=== PATIENT | male | born 1945 | race Caucasian/White ===

== ENCOUNTER 2017-01-13 08:30 | Day surgery (SDC) | payer MEDICARE, OTHER ==
[~2017-01-13] VITALS: Ht 172.7 cm; Wt 86.2 kg
[~2017-01-13 08:30] MED LIST: 0.9% Sodium Chloride 1,000 ML IV SCH; ACET-2766 PO; CELE200C PO; GLUC100016 PO; OMEP20TA86 PO; PREG75CA PO; Sodium Chloride LOK Flush 10 mL Syringe IV PRN; fentaNYL-PF 50 mCg/mL 2 mL Inj IVPUSH PRN
[2017-01-13 09:01] VITALS: BP 113/66; PULSE 72; O2SAT 96
[2017-01-13] MEDS ORDERED: RANI75TA21 PO (09:03)
[2017-01-13 10:30] VITALS: BP 109/68; PULSE 74; RESP 16; O2SAT 99
[2017-01-13 10:40] VITALS: BP 123/69; PULSE 71; RESP 16; O2SAT 97
[2017-01-13 10:50] VITALS: BP 113/72; PULSE 75; RESP 16; O2SAT 98
[2017-01-13 11:00] VITALS: BP 133/92; RESP 16
--- NOTE | 2017-01-13 11:01 | ENDO ---
[address] [address] ENDOSCOPY PROCEDURE PATIENT: DAVID MICHAEL : 1945 MR#: [id number] ADMIT: 01/13/2017 JOB ID: [id number] DATE: 01/13/2017 PROCEDURE: Esophagogastroduodenoscopy with hot snare polypectomy and biopsy along with a colonoscopy and hot snare polypectomy. EQUIPMENT: GIF-H180J and PCF-H180AL. SEDATION: 1. Versed 6 mg. 2. Fentanyl 125 mcg. COMPLICATIONS: None identified. BOWEL PREPARATION: Fair, adequate exam. INDICATIONS: A 71-year-old male with chronic longstanding reflux, but acceptably controlled with PPI. He also reports a personal history of colon polyps and returns for surveillance. PROCEDURE INFO: After the risks and benefits were explained, written and verbal informed consent was obtained. The patient was brought into the endoscopy suite and placed into the left lateral decubitus position. Sedation was achieved using the above-stated medications with the addition of oxygen via nasal cannula. The scope was introduced into the rectum and advanced under direct visualization to the level of the second portion of the duodenum. The scope was slowly withdrawn to carefully examine the mucosa for any defects or lesions. Retroflexed views were accomplished in the stomach. The stomach was decompressed. The scope removed from the patient who tolerated the procedure well. The patient was then turned around. A digital rectal examination accomplished. Mild prostatic hypertrophy, smooth was noted otherwise. No significant pathology appreciated. The scope was introduced into the rectum and advanced to the cecum as identified by the appendiceal orifice and ileocecal valve. The scope was slowly withdrawn to carefully examine the mucosa for any defects or lesions. Retroflexed views were accomplished in the rectum. The colon was decompressed. The scope removed from the patient who tolerated the procedure well. FINDINGS: 1. Duodenum: No pathology from the bulb through to the second portion identified. 2. Stomach: No outlet obstruction. No ulcers. No mass lesions. Retroflexed views of the LES were rather unremarkable. There was an approximately 6 mm polyp in the proximal body of the stomach. I initially biopsied this and there was some mild oozing. We therefore elected to take it off entirely with hot snare polypectomy. 3. Esophagus: Subtle sliding hiatal hernia was noted. The GEJ was at 41 cm from the incisors. There was a tongue of possible Jimenez's in the 7 o'clock location. This would be measured as C0M0.5 if it is indeed Jimenez's. Biopsy was acquired. No other pathology appreciated in the esophagus and there was no evidence of any acute erosive changes. 4. Colon: In the transverse colon there was a small 6 mm sessile polyp removed with hot snare. No other significant pathology appreciated throughout including retroflexed views. ENDOSCOPIC DIAGNOSES: 1. Gastric polyp. 2. Small sliding hiatal hernia. 3. 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 4. Colon polyp. 5. Increased prostate size. RECOMMENDATIONS: 1. Await histopathology. 2. If nondysplastic Jimenez's is identified, then repeat EGD in 9-12 months. 3. Repeat colonoscopy five years. 4. Follow up in primary care for routine prostate health surveillance.
[2017-01-13 11:10] VITALS: BP 127/83; PULSE 70; RESP 16; O2SAT 98
--- NOTE | 2017-01-15 13:49 | PATH ---
SURGICAL PATHOLOGY Attending Physician:Baylee York CASE STATUS: Signed Out PATIENT NAME: DAVID MICHAEL PID: [id number] : 1945 DATE COLLECTED:01/13/2017 16:23 SPECIMEN: 1: Stomach, Polyp, Biopsy 2: Esophagus, Biopsy 3: Colon, Polyp CLINICAL HISTORY: 1. GASTRIC POLYP X1 2. DISTAL ESOPHAGUS 3. TRANSVERSE COLON POLYP X1 FINAL DIAGNOSIS: 1.STOMACH, POLYP, BIOPSY: FUNDIC GLAND POLYP. Negative for Helicobacter organisms. Negative for intestinal metaplasia. Negative for dysplasia and malignancy. 2.DISTAL ESOPHAGUS, BIOPSY: COLUMNAR MUCOSA WITH NO DIAGNOSTIC ABNORMALITY. Negative for intestinal metaplasia. Negative for dysplasia and malignancy. 3.TRANSVERSE COLON, POLYP, BIOPSY: COLONIC MUCOSA WITH NO DIAGNOSTIC ABNORMALITY CONSISTENT WITH POLYPOID REDUNDANCY. Negative for dysplasia and malignancy. Additional levels were examined. ICD10 R10.9 GROSS DESCRIPTION: Received are three formalin-filled containers, each labeled with the patient' s name. 1. Received in formalin, labeled with the patient' s name and "gastric polyp", are four fragments of linn, soft tissue ranging in size from 0.1 x 0.1 x 0.1 cm to 0.3 x 0.3 x 0.3 cm. The larger fragment is bisected, and all fragments are totally submitted in cassette 1A. 2. Received in formalin, labeled with the patient' s name and "DE", is one fragment of linn, soft tissue measuring 0.1 x 0.1 x 0.1 cm. The fragment is totally submitted in cassette 2A. 3. Received in formalin, labeled with the patient' s name and "transverse colon polyp x1", are two fragments of linn, soft tissue ranging in size from 0.2 x 0.1 x 0.1 cm to 0.2 x 0.2 x 0.2 cm. All fragments are totally submitted in cassette 3A. ([id number]) MICRO DESCRIPTION: See diagnosis. ICD-9 CODES: CPT CODES: 1: 50196 2: 27868 3: 47986 Electronically Signed Out Claudia Nowak MD [facility] Pathology [facility] [address], [place] [address] Technical component performed at [facility] [address], [place], [address]
== END 2017-01-13 23:59 | disposition home or self-care (01) ==
LOC: END 08:30
PROVIDERS: ATTEND Internal Medicine Gastroenterology
DX: Z12.11 Encounter for screening for malignant neoplasm of colon (principal); K63.5 Polyp of colon; K31.7 Polyp of stomach and duodenum; K44.9 Diaphragmatic hernia without obstruction or gangrene; K21.9 Gastro-esophageal reflux disease without esophagitis; N40.0 Benign prostatic hyperplasia without lower urinary tract symptoms; M54.30 Sciatica, unspecified side; M19.90 Unspecified osteoarthritis, unspecified site; G62.9 Polyneuropathy, unspecified
CPT/HCPCS: 43239; 45385; 99153; G0500; J7030